=== PATIENT | male | born 1990 ===

== ENCOUNTER 2019-11-08 23:58 | Emergency (ER) | payer SELFPAY ==
[2019-11-09] MEDS ORDERED: oxyCODONE /ACETAMINOPHEN 5-325MG TAB PO ONE (00:49)
[2019-11-09] MEDS ORDERED: FLUORESCEIN 1 MG STRIP OP ONE (02:25)
[2019-11-09] MEDS ORDERED: TETRACAINE 0.5% OPHTH SOLN 4ML ONE (02:26)
--- NOTE | 2019-11-09 03:44 | Emergency Department Report ---
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 Injury occurred about 4 PM yesterday while at work. Patient states he was wearing protective guards. He was welding/soldering tubes containing a oil-based liquid. The tube burst causing the hot oil based liquid to splatter on his face and left eye. Patient has had 9-10/10 constant left eye pain since this occurred with blurred vision. Light makes pain worse. He does not wear glasses or corrective lenses. Tetanus is up-to-date. - Related Data Previous Rx's Medication Instructions Recorded Last Taken Type Ciprofloxacin HCl [Ciloxan] 2 drop OS QID 5 Days drops 11/09/19 Unknown Rx HYDROcodone/APAP 5-325 [[place] 1 each PO Q6HR PRN #15 tablet 11/09/19 Unknown Rx 5/325] Ibuprofen [Motrin] 600 mg PO Q8H PRN #30 tablet 11/09/19 Unknown Rx Allergies Allergy/AdvReac Type Severity Reaction Status Date / Time No Known Allergies Allergy Verified 11/09/19 02:27 ED Review of Systems ROS: Stated complaint: LEFT EYE INJURY Other details as noted in HPI Comment: All other systems reviewed and negative ED Past Medical Hx - Past Medical History Previous Medical History?: No - Surgical History Past Surgical History?: No - Social History Smoking Status: Never Smoker Substance Use Type: None - Medications Home Medications: Home Medications Medication Instructions Recorded Confirmed Last Taken Type Ciprofloxacin HCl [Ciloxan] 2 drop OS QID 5 Days drops 11/09/19 Unknown Rx HYDROcodone/APAP 5-325 [[place] 1 each PO Q6HR PRN #15 tablet 11/09/19 Unknown Rx 5/325] Ibuprofen [Motrin] 600 mg PO Q8H PRN #30 tablet 11/09/19 Unknown Rx ED Physical Exam - General Limitations: No Limitations - Other Other exam information: General: No acute distress Head: Atraumatic Eyes: Left eye tearing, pupils equal reactive to light, mild conjunctive a erythema. Fluorescein and uptake at a punctate area to the right appear the pupil at the area of the iris. Foreign body not visualized. Tetracaine improved pain. Left eye visual acuity 20/30, right eye 20/20. Bilateral eyes 20/20. Extraocular movements intact ENT: Moist mucous membranes Neck: Normal appearance, no midline tenderness Chest: Clear to auscultation bilaterally CV: Regular rate and rhythm Abdomen: Soft, normal bowel sounds, nontender, nondistended, no rebound or guarding Back: Normal inspection Extremity: Normal inspection, full range of motion Neuro: Alert O x 3, no facial asymmetry, speech clear, no gross motor sensory deficit Psych: Appropriate behavior Skin: No rash ED Course Vital Signs 11/09/19 00:35 Temperature 98.5 F Pulse Rate 78 Respiratory 14 Rate Blood Pressure 142/89 O2 Sat by Pulse 97 Oximetry ED Medical Decision Making - Medical Decision Making Patient appears to have a corneal abrasion. No foreign body visualized. Patient states oil splattered into his face welding tubes filled with oil base liquid. Tetracaine improved pain. Visual acuity slightly worse in the affected eye Patient will be placed on topical antibiotics, oral pain medication and urgent ophthalmology evaluation requested Faculty Research Physician used for explanation of diagnosis, treatment, and need for outpatient follow-up Patient provided good Rx card to make his prescriptions more affordable Critical Care Time: No Critical care attestation.: If time is entered above; I have spent that time in minutes in the direct care of this critically ill patient, excluding procedure time. ED Disposition Clinical Impression: Left cornea abrasion Disposition: DC-01 TO HOME OR SELFCARE Is pt being admited?: No Does the pt Need Aspirin: No Condition: Stable Instructions: Corneal Abrasion (ED) Additional Instructions: Take the medication as prescribed. It is very important that you follow-up with your fisher trawl line in the next 2 to 3 days. Take the medication as prescribed. Return if symptoms worsen as indicated by your discharge instructions. You have been provided a good Rx card to make your medication more affordable. Take the card to your pharmacy. [place] el medicamento segn lo prescrito. Es muy importante que realice un seguimiento con ortiz oftalmlogo en los prximos 2 a 3 diaz. [place] el medicamento segn lo prescrito. Regrese si los sntomas empeoran segn lo indicado en edwar instrucciones de jaden. Se le sharma proporcionado vernell buena tarjeta Rx para que edwar medicamentos devin ms asequibles. Lleve la tarjeta a ortiz farmacia. Prescriptions: Ciprofloxacin HCl [Ciloxan] 2 drop OS QID 5 Days drops Ibuprofen [Motrin] 600 mg PO Q8H PRN #30 tablet PRN Reason: Pain HYDROcodone/APAP 5-325 [[place] 5/325] 1 each PO Q6HR PRN #15 tablet PRN Reason: Pain Referrals: SUKHJINDER ORDOÑEZ MD [Staff Physician] - 3-5 Days (Ophthalmology ) CHAO FISHER MD [Staff Physician] - 3-5 Days (Ophthalmology) Time of Disposition: 03:49 Print Language: GUINEAN
[2019-11-09 04:21] VITALS: BP 114/69
== END 2019-11-09 04:15 | disposition home or self-care (01) ==
LOC: ED 23:58
DX: S05.02XA Injury of conjunctiva and corneal abrasion without foreign body, left eye, initial encounter (principal); X58.XXXA Exposure to other specified factors, initial encounter; Y93.89 Activity, other specified; Y92.89 Other specified places as the place of occurrence of the external cause; Y99.8 Other external cause status